=== PATIENT | male | born 1985 | race Hispanic/Latino ===

== ENCOUNTER 2022-10-26 17:28 | Emergency (ER) | payer OTHER ==
[~2022-10-26] VITALS: Ht 177.8 cm; Wt 117.9 kg
[2022-10-26] MEDS ORDERED: VENTOLIN HFA18 GM INH (17:53)
[2022-10-26] MEDS ORDERED: ADVAIR 250-501 EACH INH (18:56)
[2022-10-26] MEDS ORDERED: PREDNISONE20 MG PO (18:56)
[2022-10-26] MEDS ORDERED: ALBUTEROL2.5 MG/3 M INH (19:05)
== END 2022-10-26 19:44 | disposition home or self-care (01) ==
LOC: ED 17:28
DX: J45.901 Unspecified asthma with (acute) exacerbation (principal)
CPT/HCPCS: 36415; 71045; 80053; 85025; 94644; 94664; 96374; 99285-25; J2930

== ENCOUNTER 2023-07-31 18:38 | Emergency (ER) | payer OTHER ==
[~2023-07-31] VITALS: Ht 177.8 cm; Wt 117.9 kg
[~2023-07-31 18:38] MED LIST: ADVAIR 250-501 EACH INH; ALBUTEROL2.5 MG/3 M INH; PREDNISONE20 MG PO; VENTOLIN HFA18 GM INH
[2023-07-31 19:43] LABS: INFLUENZA B NAA NEGATIVE (NEGATIVE); RESPIRATORY SYNCYTIAL VIR NAA NEGATIVE (NEGATIVE)
[2023-07-31] MEDS ORDERED: PREDNISONE20 MG PO (20:05)
[2023-07-31] MEDS ORDERED: VENTOLIN HFA18 GM INH (20:05)
[2023-07-31 20:20] VITALS: BP 150/86
== END 2023-07-31 20:20 | disposition home or self-care (01) ==
LOC: ED 18:38
PROVIDERS: Emergency Medicine
DX: J45.909 Unspecified asthma, uncomplicated (principal); Z20.822 Contact with and (suspected) exposure to COVID-19; Z79.899 Other long term (current) drug therapy
CPT/HCPCS: 71045; 87502; 94640; C9803; J2930; U0002